=== PATIENT | male | born 1955 | race Caucasian/White ===

== ENCOUNTER 2016-12-17 02:30 | Emergency (ER) | payer SELFPAY ==
[~2016-12-17] VITALS: Ht 182.9 cm; Wt 85.0 kg
[~2016-12-17 02:30] MED LIST: BYSTOLIC10 MG PO; CARAFATE 1GM1 G PO; NO HOME MEDICATIONS; PROTONIX 40MG T40 MG
[2016-12-17 02:32] VITALS: TEMP 98
[2016-12-17] MEDS ORDERED: NORCO 325 MG-51 TAB PO (03:26)
[2016-12-17] MEDS ORDERED: MEDROL 4MG DOSPA4 MG PO (03:26)
[2016-12-17 03:41] VITALS: BP 131/81; PULSE 63
== END 2016-12-17 03:43 | disposition home or self-care (01) ==
LOC: COL.ER 02:30
DX: M54.12 Radiculopathy, cervical region (principal); I10 Essential (primary) hypertension; F17.210 Nicotine dependence, cigarettes, uncomplicated; Z98.890 Other specified postprocedural states
CPT/HCPCS: J1885; J2360

== ENCOUNTER 2021-05-15 11:19 | Emergency (ER) | payer MEDICARE ==
[~2021-05-15] VITALS: Ht 180.3 cm; Wt 93.6 kg
[~2021-05-15 11:19] MED LIST changes: +MEDROL 4MG DOSPA4 MG PO; +NORCO 325 MG-51 TAB PO
[2021-05-15 11:37] VITALS: TEMP 98.2
[2021-05-15] MEDS ORDERED: PREDNISONE20 MG PO (12:13)
[2021-05-15 12:40] VITALS: BP 142/73; PULSE 73
== END 2021-05-15 12:40 | disposition home or self-care (01) ==
LOC: COL.ER 11:19
DX: M54.42 Lumbago with sciatica, left side (principal); I10 Essential (primary) hypertension; Z79.899 Other long term (current) drug therapy; Z79.1 Long term (current) use of non-steroidal anti-inflammatories (NSAID)

== ENCOUNTER → 2021-08-10 | Outpatient (CLI) | payer MEDICARE ==
[~2021-08-10] MED LIST changes: +PREDNISONE20 MG PO
== END ==
LOC: COL.RAD 06:40
DX: K80.20 Calculus of gallbladder without cholecystitis without obstruction (principal); K76.0 Fatty (change of) liver, not elsewhere classified; R74.8 Abnormal levels of other serum enzymes

== ENCOUNTER 2021-11-19 14:31 | Emergency (ER) | payer MEDICARE ==
[~2021-11-19] VITALS: Ht 177.8 cm; Wt 92.5 kg
[2021-11-19 14:49] VITALS: TEMP 98.4
[2021-11-19] MEDS ORDERED: ROBAXIN 75750 MG/TAB PO (15:33)
[2021-11-19 15:41] VITALS: BP 158/78; PULSE 86
== END 2021-11-19 15:41 | disposition home or self-care (01) ==
LOC: COL.ER 14:31
DX: M43.6 Torticollis (principal); F17.210 Nicotine dependence, cigarettes, uncomplicated; Z98.890 Other specified postprocedural states

== ENCOUNTER 2021-11-29 08:23 | Emergency (ER) | payer MEDICARE ==
[~2021-11-29] VITALS: Ht 177.8 cm; Wt 92.3 kg
[~2021-11-29 08:23] MED LIST changes: +ROBAXIN 75750 MG/TAB PO
[2021-11-29 08:32] VITALS: TEMP 98.7
[2021-11-29 09:50] VITALS: BP 145/93; PULSE 76
== END 2021-11-29 09:50 | disposition home or self-care (01) ==
LOC: COL.ER 08:23
DX: R04.0 Epistaxis (principal); Z28.310 Unvaccinated for COVID-19

== ENCOUNTER 2021-12-01 12:31 | Observation (INO) | payer MEDICARE ==
[~2021-12-01] VITALS: Ht 177.8 cm; Wt 92.7 kg
[2021-12-01 13:00] VITALS: BP 114/62; PULSE 75; TEMP 98.2
--- NOTE | 2021-12-01 13:00 | NUR ---
Pt admitted to medical floor. VSS. Shift assessment completed by ROLA Romano. INT inserted on R wrist by ROAL Romano. Call light within reach.
[2021-12-01 13:19] VITALS: BP 123/65; PULSE 75; TEMP 98.1
[2021-12-01 14:23] LABS: HEMOGLOBIN 10.3 g/dl (13.5-18.0); MEAN CELL VOLUME 88 fl (80.0-100.0); MEAN CORPUSCULAR HEMOGLOBIN 29 pg (27-31); MEAN CORPUSCULAR HGB CONC 33 g/dl (33.0-37.0); MEAN PLATELET VOLUME 9.2 fl (7.4-10.4); PLATELET COUNT 312 K/mm3 (130-400); RED BLOOD COUNT 3.54 M/mm3 (4.20-5.60); REDCELL DISTRIBUTION WIDTH-CV 14.4 % (11.5-14.5)
[2021-12-01 14:44] LABS: ALBUMIN 3.4 gm/dL (3.4-4.8); BILIRUBIN,TOTAL 0.4 mg/dL (0.2-1.2); CALCIUM 8.8 mg/dL (8.4-10.2); CREATININE, serum 0.85 mg/dL (0.72-1.25); POTASSIUM 4.3 mmol/L (3.5-4.5); TOTAL PROTEIN 6.5 gm/dL (6.2-8.1)
[2021-12-01] MEDS ORDERED: TOPROL XL 50MG50 MG PO (14:47)
[2021-12-01] MEDS ORDERED: NORVASC 5MG5 MG/TAB PO (14:48)
[2021-12-01 14:54] LABS: BAND 5 % (0-10); LYMPHOCYTE 10 % (20.0-51.0); NEUTROPHILS 75 % (42.0-75.2)
[2021-12-01 14:55] LABS: PLATELET ESTIMATE NORMAL (NORMAL)
--- NOTE | 2021-12-01 15:07 | NUR ---
Associate Principal met with patient to discuss discharge planning. Patient lives in [place] with his , Napoleon (ph#[phone]) and sees Dr. Virk for primary care. Patient obtains medications from [facility] in [place] and does not use any DME. 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 Patient does not have Advance Directives and was not interested in setting up DPOA-HC at this time. Patient advised he plans to return home at time of discharge. Patient expressed concern about paying his hospital bill so SW consulted [employer] Financial Counselor. Discharge Plan: Home
[2021-12-01 15:54] VITALS: BP 145/72; PULSE 81; TEMP 98.3
--- NOTE | 2021-12-01 20:30 | NUR ---
Pt sitting up in bed, watching TV. Shift assessment completed. A&O x4. VSS. Rhino rocket in place. No disconfort or pain are voiced at this moment. Call light within reach.
[2021-12-01 20:32] VITALS: BP 127/60; PULSE 76; TEMP 98.5
[2021-12-02 00:43] VITALS: BP 131/52; PULSE 83; TEMP 98.9
[2021-12-02 04:32] VITALS: BP 146/66; PULSE 84; TEMP 98.4
--- NOTE | 2021-12-02 06:29 | NUR ---
Patient bled through gauze around nose twice this shift. Gauze changed. Rhinorocket remains in place.
[2021-12-02 07:19] VITALS: BP 128/56; PULSE 75; TEMP 98.3
--- NOTE | 2021-12-02 09:45 | NUR ---
CALL BACK RECIEVED FROM DR NEAL. UPDATED HIM ON PATIENT STATUS. HE STATED SOME BLOOD TO BE EXPECTED. ONLY PUT ONE GAUZE TO THE R NARE TO CLOSELY MONITOR OUTPUT. WOULD ALSO LIKE CBC AND CALL BACK AT 1PM FOR UPDATE ON PATIENT STATUS.
[2021-12-02 10:40] LABS: MEAN CELL VOLUME 90 fl (80.0-100.0); MEAN CORPUSCULAR HGB CONC 33 g/dl (33.0-37.0); MEAN PLATELET VOLUME 9.1 fl (7.4-10.4); PLATELET COUNT 266 K/mm3 (130-400); RED BLOOD COUNT 3.28 M/mm3 (4.20-5.60); REDCELL DISTRIBUTION WIDTH-CV 14.5 % (11.5-14.5)
[2021-12-02 10:41] LABS: HEMATOCRIT 29.4 % (42.0-52.0); HEMOGLOBIN 9.8 g/dl (13.5-18.0); MEAN CORPUSCULAR HEMOGLOBIN 30 pg (27-31)
[2021-12-02 11:17] VITALS: BP 132/71; PULSE 84; TEMP 98.1
[2021-12-02 11:22] LABS: LYMPHOCYTE 6 % (20.0-51.0); NEUTROPHILS 83 % (42.0-75.2); PLATELET ESTIMATE NORMAL (NORMAL)
--- NOTE | 2021-12-02 11:47 | NUR ---
PATIENT HAS GONE THROUGH 3 4X[address] IN [address] NEAL NOTIFIED. NO NEW ORDERS AT THIS TIME. STATED HE WILL CALL LATER TO CHECK ON PATIENT STATUS.
--- NOTE | 2021-12-02 13:48 | NUR ---
Pantry Chef rounds: Patient has been in hospital since Saturday due to bloody nose. The doctor conducted his rounds on this Patient during Pantry Chef visit. Doctor told Patient that they are monitoring his red blood cell count. Patient still has grief resulting from the of his father and brother. Patient is [employer]. Nyla resides in [place]. Pantry Chef prayed for Patient.
[2021-12-02 14:05] LABS: HEMATOCRIT 29.3 % (42.0-52.0); HEMOGLOBIN 9.9 g/dl (13.5-18.0)
[2021-12-02 16:09] VITALS: BP 158/75; PULSE 78; TEMP 98.4
--- NOTE | 2021-12-02 18:41 | NUR ---
DOMINICK 12PM I HAVE CHANGED THE ONE PIECE OF 4X4 GAUZE TO THE RIGHT NARE 3 TIMES.
[2021-12-02 19:45] VITALS: BP 124/84; PULSE 82; TEMP 98.5
--- NOTE | 2021-12-02 19:55 | NUR ---
Pt sitting up in bed requesting assisstance with gauze change for nose. A&O x4. VSS. Shift assessment completed. Pt verbalizes frustration due to nose bleeding; although, he expresses feeling better than previous night. Right wrist INT intact. Call light within reach. Will continue monitoring.
[2021-12-03] VITALS (7 sets, daily range): BP systolic 123–168; BP diastolic 47–80; PULSE 57–88; TEMP 97.8–99
[2021-12-03 06:14] LABS: MEAN CELL VOLUME 88 fl (80.0-100.0); MEAN CORPUSCULAR HGB CONC 33 g/dl (33.0-37.0); MEAN PLATELET VOLUME 9.5 fl (7.4-10.4); PLATELET COUNT 300 K/mm3 (130-400); RED BLOOD COUNT 3.28 M/mm3 (4.20-5.60); REDCELL DISTRIBUTION WIDTH-CV 14.6 % (11.5-14.5)
[2021-12-03 06:23] LABS: HEMATOCRIT 28.9 % (42.0-52.0); HEMOGLOBIN 9.6 g/dl (13.5-18.0); MEAN CORPUSCULAR HEMOGLOBIN 29 pg (27-31)
[2021-12-03 06:27] LABS: CREATININE, serum 0.82 mg/dL (0.72-1.25)
--- NOTE | 2021-12-03 06:58 | NUR ---
Pt lying down in bed. During the night his nose dressing got changed 3 times due to bleeding. Follow up with education about trying to avoid making intense inspirations or exhalations, to prevent active bleeding. Call light within reach.
--- NOTE | 2021-12-03 07:28 | NUR ---
PATIENTS GAUZE NEEDED CHANGED. PATIENT VOICING WISHES TO HAVE HIS "PROBLEM" FIXED. STATES HES HAD HIS NOSE BLEEDING SINCE SATURDAY AND "DONT KNOW HOW MUCH MORE OF THIS I CAN TAKE."
[2021-12-03 08:09] LABS: LYMPHOCYTE 15 % (20.0-51.0); NEUTROPHILS 76 % (42.0-75.2); PLATELET ESTIMATE NORMAL (NORMAL)
--- NOTE | 2021-12-03 17:30 | NUR ---
GAUZE TO RIGHT NARE CHANGE 5 TIMES SINCE 0700 AM
--- NOTE | 2021-12-03 18:16 | NUR ---
PATIENT ALERT AND ORIENTED, RESTIGN IN BED. PATIENT HAS NO COMPLAINTS OR NEEDS AT THIS TIME. BELONGINGS AND CALL LIGHT WITH IN REACH.
[2021-12-04 03:12] VITALS: BP 138/62; PULSE 86; TEMP 98.3
[2021-12-04 06:09] LABS: MEAN CELL VOLUME 91 fl (80.0-100.0); MEAN CORPUSCULAR HGB CONC 33 g/dl (33.0-37.0); MEAN PLATELET VOLUME 9.8 fl (7.4-10.4); PLATELET COUNT 296 K/mm3 (130-400); RED BLOOD COUNT 3.08 M/mm3 (4.20-5.60); REDCELL DISTRIBUTION WIDTH-CV 14.6 % (11.5-14.5)
--- NOTE | 2021-12-04 06:12 | NUR ---
PATIENT RESTED QUIETLY THIS SHIFT. PATIENT EXPRESSED FRUSTRTATION AT STILL BEING IN HOSPITAL AND EAGER TO GET BACK HOME TO . PATIENT REQUIRED GAUZE PADS TO NOSE TO BE CHANGED 4 TIMES. PATIENT HAD NO COMPLAINTS OF PAIN AND RECEIVED NO PRN MEDICATIONS.
[2021-12-04 06:21] LABS: HEMOGLOBIN 9.2 g/dl (13.5-18.0); MEAN CORPUSCULAR HEMOGLOBIN 30 pg (27-31)
[2021-12-04 06:24] LABS: CALCIUM 8.6 mg/dL (8.4-10.2); CREATININE, serum 0.81 mg/dL (0.72-1.25); POTASSIUM 3.8 mmol/L (3.5-4.5)
[2021-12-04 06:56] LABS: BAND 5 % (0-10); LYMPHOCYTE 13 % (20.0-51.0); NEUTROPHILS 67 % (42.0-75.2); PLATELET ESTIMATE NORMAL (NORMAL)
[2021-12-04] MEDS ORDERED: MONODOX100 PO (07:51)
[2021-12-04 08:10] VITALS: BP 131/65; PULSE 84; TEMP 98.2
--- NOTE | 2021-12-04 08:46 | NUR ---
Patient is sitting at the side of the bed, alert and oriented x 4, Complains of been bleeding still without any interventions to help him. He wantst to be done with this to be ablo to come back home and take care of his . Assessment completed, dresing changed, the gauze was partially saturated. Hygiene provided. Continue monitoring. Call light within reach.
[2021-12-04 11:18] VITALS: BP 132/66; PULSE 72; TEMP 98.3
--- NOTE | 2021-12-04 13:47 | NUR ---
Patient was provided with discharge information, IV access discontinued. All questions answered. Patient was taken out of the hospital via wheelchair by CHANDLER Aguilar.
== END 2021-12-04 13:48 | disposition home or self-care (01) ==
LOC: MEDICAL 12:31
PROVIDERS: Otolaryngology; ADMIT Student in an Organized Health Care Education/Training Program
DX: R04.0 Epistaxis (principal); D72.829 Elevated white blood cell count, unspecified; I10 Essential (primary) hypertension; F17.210 Nicotine dependence, cigarettes, uncomplicated; Z79.899 Other long term (current) drug therapy
CPT/HCPCS: G0378